=== PATIENT | female | born 1985 | race Hispanic/Latino ===

== ENCOUNTER 2020-10-31 03:06 | Inpatient (IN) | payer SELFPAY ==
[2020-10-31] VITALS (7 sets, daily range): BP systolic 110–135; BP diastolic 69–86
[~2020-10-31] VITALS: Ht 160 cm; Wt 73.5 kg
[2020-10-31 04:45] LABS: BASOPHILS % (AUTO) 0.2 % (0.0-5.0); EOSINOPHILS % (AUTO) 0.7 % (0.0-8.0); HEMATOCRIT 47.2 % (36-48); LYMPHOCYTES % (AUTO) 10.6 % (21.0-51.0); MEAN CORPUSCULAR HEMOGLOBIN 29.4 pg (27.0-33.0); MEAN CORPUSCULAR HGB CONC 33.3 g/dL (32.0-36.0); MEAN CORPUSCULAR VOLUME 88.4 fL (79-99); MONOCYTES % (AUTO) 6.4 % (3.0-13.0); NEUTROPHILS % (AUTO) 81.7 % (40.0-77.0); PLATELET COUNT (AUTO) 255 K/uL (130-400); RED BLOOD CELL COUNT(AUTO) 5.34 MIL/uL (4.00-5.50); RED CELL DISTRIBUTION WIDTH 12.4 % (11.0-15.5)
[2020-10-31] MEDS ORDERED: MORPHINE SULFATE 4 MG/1ML SYG IV ONE (04:45)
[2020-10-31] MEDS ORDERED: ONDANSETRON HCL 4 MG/2 ML VIAL ONE (04:55)
[2020-10-31] MEDS ORDERED: MORPHINE SULFATE 4 MG/1ML SYG ONE (04:55)
[2020-10-31 04:56] LABS: BILIRUBIN,TOTAL 0.6 mg/dL (0.2-1.0); CREATININE 0.8 mg/dL (0.5-1.5); POTASSIUM 3.7 mmol/L (3.5-5.1); TOTAL PROTEIN, SERUM 8.3 g/dL (6.0-8.3)
[2020-10-31 05:10] LABS: APPEARANCE,URINE Clear (CLEAR); BILIRUBIN,URINE Negative (NEGATIVE); COLOR,URINE Yellow (YELLOW); GLUCOSE, URINE (UA) Negative (NEGATIVE); KETONES,URINE Trace mg/dL (NEGATIVE); LEUKOCYTE ESTERASE ,URINE Negative (NEGATIVE); NITRATE,URINE Negative (NEGATIVE); OCCULT BLOOD,URINE Negative (NEGATIVE); PH,URINE 7.5 (5.0-8.0); PROTEIN,URINE Negative (NEGATIVE)
[2020-10-31 05:12] LABS: HCG,QUAL RESULT NEGATIVE (NEGATIVE)
[2020-10-31] MEDS: ONDANSETRON HCL 4 MG/2 ML VIAL IVP SCH (05:20)
[2020-10-31] MEDS ORDERED: KETOROLAC TROMETHAMINE 30MG/ML IV SCH (06:00)
[2020-10-31] MEDS ORDERED: AZITHROMYCIN 250 MG TABLET PO SCH (08:00)
[2020-10-31] MEDS ORDERED: CEFTRIAXONE SODIUM 1 GM IVP SCH (08:00)
[2020-10-31] MEDS ORDERED: SODIUM CHLORIDE 0.9% 50 ML IV ONE (08:18)
[2020-10-31] MEDS ORDERED: CEFUROXIME SODIUM 1.5 GM VIAL IVP SCH (12:15)
[2020-10-31] MEDS: DEXTROSE 5%-LACTATED RINGERS 1,000 ML IV SCH ×2 (12:57→21:28)
[2020-10-31] MEDS: ONDANSETRON 4 MG TABLET PO SCH ×2 (13:34→21:26)
[2020-10-31] MEDS ORDERED: MEPERIDINE-PF 50 MG/ML SYG IM PRN (15:15)
[2020-10-31] MEDS ORDERED: ACETAMINOPHEN-CODEINE 300/30MG TAB PO PRN ×2 (15:15)
[2020-10-31] MEDS ORDERED: PROMETHAZINE HCL 25 MG/ML 1ML AMPULE IM PRN (15:15)
[2020-10-31] MEDS: IBUPROFEN 800 MG TAB PO SCH (16:03)
[2020-10-31] MEDS: CEFOXITIN SODIUM 2 GM VIAL IV SCH (16:03)
[2020-10-31] MEDS: DOXYCYCLINE HYCLATE 100 MG TABLET PO SCH (21:54)
[2020-10-31] MEDS: METRONIDAZOLE 500 MG TABLET PO SCH (21:54)
[2020-11-01] MEDS: IBUPROFEN 800 MG TAB PO SCH ×2 (00:07→08:46)
[2020-11-01] MEDS: CEFOXITIN SODIUM 2 GM VIAL IV SCH ×2 (00:07→08:47)
[2020-11-01 03:06] VITALS: BP 96/60
[2020-11-01] MEDS: DEXTROSE 5%-LACTATED RINGERS 1,000 ML IV SCH (04:03)
[2020-11-01 04:08] LABS: BASOPHILS % (AUTO) 0.2 % (0.0-5.0); EOSINOPHILS % (AUTO) 2.2 % (0.0-8.0); LYMPHOCYTES % (AUTO) 24.8 % (21.0-51.0); MEAN CORPUSCULAR HEMOGLOBIN 29.1 pg (27.0-33.0); MEAN CORPUSCULAR HGB CONC 32.6 g/dL (32.0-36.0); MEAN CORPUSCULAR VOLUME 89.4 fL (79-99); MONOCYTES % (AUTO) 8.5 % (3.0-13.0); PLATELET COUNT (AUTO) 192 K/uL (130-400); RED BLOOD CELL COUNT(AUTO) 4.36 MIL/uL (4.00-5.50); RED CELL DISTRIBUTION WIDTH 12.6 % (11.0-15.5); WHITE BLOOD COUNT (AUTO) 6.4 K/uL (4.8-10.8)
[2020-11-01] MEDS: ONDANSETRON HCL 4 MG/2 ML VIAL IVP SCH (04:45)
[2020-11-01] MEDS: ONDANSETRON 4 MG TABLET PO SCH (05:10)
[2020-11-01 07:29] VITALS: BP 118/69
[2020-11-01] MEDS: METRONIDAZOLE 500 MG TABLET PO SCH (08:46)
[2020-11-01] MEDS: DOXYCYCLINE HYCLATE 100 MG TABLET PO SCH (08:46)
[2020-11-01] MEDS ORDERED: DOXY-252 PO (09:51)
[2020-11-01] MEDS ORDERED: METR-172 PO (09:52)
[2020-11-01] MEDS ORDERED: ACET1TAB25 PO (09:52)
[2020-11-01] MEDS ORDERED: IBUP-2071 PO (09:53)
[2020-11-01] MEDS ORDERED: IBUP-2077 PO (09:53)
[2020-11-01 18:09] LABS: CHLAMYDIA DNA N.A.AMPLIFY Negative (Negative)
== END 2020-11-01 11:15 | disposition home or self-care (01) | DRG 759 ==
LOC: EDH 04:10 → EDHIP 04:11 → WSH 13:19
PROVIDERS: ADMIT Obstetrics & Gynecology; ATTEND Obstetrics & Gynecology
DX: N73.9 Female pelvic inflammatory disease, unspecified (principal); N70.93 Salpingitis and oophoritis, unspecified; L73.2 Hidradenitis suppurativa
CPT/HCPCS: 36415; 74176; 76830; 80053; 81003; 81025; 83690; 85025; 87210; 87486; 87797; G0378; J0694; J0696; J0697; J1885; J2175; J2270; J2405; J2550; Q0162